=== PATIENT | female | born 2000 | race Caucasian/White ===

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

== ENCOUNTER 2022-08-24 14:04 | Emergency (ER) | payer MEDICAID, SELFPAY ==
[2022-08-24 14:06] VITALS: BP 116/77; PULSE 86; RESP 17; TEMP 36.6; O2SAT 98; BMI 25.0
--- NOTE | 2022-08-24 14:31 | W.ED.PSYCHS ---
HPI - Psych General: Chief Complaint: Psychiatric Symptoms Stated Complaint: mhe Time Seen by Provider: 08/24/22 14:08 Source: patient Mode of arrival: ambulatory Limitations: no limitations History of Present Illness: 22-year-old female who states that over the last few weeks she has had increased mood swings. States that time she just feels sad and is crying and that at times she has these anger outburst where she feels really angry. She denies any suicidality or homicidality. She states that she does not really feel depressed either she just cries sometimes for no reason. She states she feels like she is has these massive mood swings. Review of Systems Const: Denies: fever(s) or chills ENMT: Denies: throat pain or dental pain Card: Denies: chest pain Resp: Denies: dyspnea GI: Denies: abdominal pain, nausea or vomiting Musc: Denies: neck pain or back pain Skin/Breast: Denies: rash PFSH ED PFSH: Medical History No pertinent past medical history Family History Grandmother Breast cancer Maternal Uterine cancer maternal Mother Diabetes Hypertension Stroke Denies family history of Colon cancer Ovarian cancer Heart disease Thyroid disease Social History (Updated 08/24/22 @ 14:44 by Lexy Carson MD) Substance/Drug Use: never Physical Exam Const: COMMON NORMALS: no acute distress and patient oriented x3 HENMT: COMMON NORMALS: normocephalic and atraumatic HEAD & SCALP: normocephalic and atraumatic Neck/C-Spine: COMMON NORMALS: full ROM and supple Chest: COMMONS NORMALS: normal inspection of the chest and normal palpation of entire chest wall Resp: COMMON NORMALS: normal respiratory effort, No retractions, No use of accessory muscles and clear to auscultation bilaterally AUSCULTATION: clear to auscultation bilaterally Cardio: COMMON NORMALS: regular rate, regular rhythm and No murmurs present (Cardio) RATE: regular rate RHYTHM: regular rhythm GI: COMMON NORMALS: Normal to inspection, nondistended, normoactive bowel sounds present, Soft to palpation, non-tender and no masses PALPATION: Yes Soft to palpation Extremity: COMMON NORMALS: normal to inspection and full ROM Neuro: COMMON NORMALS: patient oriented x3, moves all extremities and no focal motor deficits Psych: COMMON NORMALS: mental status grossly normal, Normal thought process present and cooperative THOUGHT PROCESS: Normal thought process present Skin: COMMON NORMALS: no rashes or lesions noted and no wounds GENERAL SKIN EXAM: no rashes or lesions noted Course Vital Signs: Vital signs: Vital Signs Temperature 98 F 08/24/22 14:06 Pulse Rate 86 08/24/22 14:06 Respiratory Rate 17 08/24/22 14:06 Blood Pressure 116/77 08/24/22 14:06 Pulse Oximetry 98 08/24/22 14:06 MDM - Psych Medical Decision Making Patient presents here with increased mood swings she is not suicidal or homicidal no real depression she states she just has some outburst of crying and then she also has these anger episodes she does not require inpatient psych I did speak to her about our crisis center we will discharge her over to the crisis center at this time. Discharge Plan Discharge Patient Disposition: Home Clinical Impression: Mood swings Condition: Stable Prescriptions: No Action No Known Home Medications Discharge Orders: Discharge ED (Routine); Ordered 08/24/22 Ordered By: Lexy Carson Referrals: Hank Donaldson MD [Primary Care Provider] - Discharge Diet: Advance as tolerated Discharge Activity: Resume usual activity Patient Instructions: Mood Disorders (ED) Coding Level of Care Code ED Container Finisher for Catrachito Lind
--- NOTE | 2022-08-24 14:40 | PC.NURSE ---
DR. MCBRIDE GAVE VERBAL ORDER TO DC PT TO CRISIS CENTER. ORDER REPEATED BACK AND VERIFIED.
== END 2022-08-24 14:43 | disposition home or self-care (01) ==
PROVIDERS: Emergency Provider Emergency Medicine; PCP Family Medicine
DX: F39 Unspecified mood [affective] disorder (principal)
CPT/HCPCS: 99283

== ENCOUNTER → 2022-08-28 08:46 | Outpatient (BNVA) | payer MEDICAID, SELFPAY | PROVIDERS: PCP Family Medicine; Visit Provider Obstetrics & Gynecology | DX: N83.209 Unspecified ovarian cyst, unspecified side (principal) | CPT/HCPCS: 76830 ==

== ENCOUNTER → 2022-11-18 17:29 | Outpatient (BNVA) | payer MEDICAID, SELFPAY | PROVIDERS: PCP Family Medicine; Visit Provider Family Medicine | DX: R39.9 Unspecified symptoms and signs involving the genitourinary system (principal); R30.0 Dysuria | CPT/HCPCS: 81000 ==

== ENCOUNTER → 2022-12-11 07:56 | Outpatient (BNVA) | payer MEDICAID, SELFPAY | PROVIDERS: PCP Family Medicine; Visit Provider Nurse Practitioner Women's Health | DX: Z34.90 Encounter for supervision of normal pregnancy, unspecified, unspecified trimester (principal) | CPT/HCPCS: 81000 ==

== ENCOUNTER → 2022-12-17 14:34 | Outpatient (BNVA) | payer MEDICAID, SELFPAY | PROVIDERS: PCP Family Medicine; Visit Provider Nurse Practitioner Women's Health | DX: Z36.87 Encounter for antenatal screening for uncertain dates (principal) | CPT/HCPCS: 76817 ==

== ENCOUNTER → 2023-01-08 13:16 | Outpatient (BNVA) | payer MEDICAID, SELFPAY | PROVIDERS: PCP Family Medicine; Visit Provider Obstetrics & Gynecology | DX: Z34.90 Encounter for supervision of normal pregnancy, unspecified, unspecified trimester (principal) | CPT/HCPCS: 81000 ==

== ENCOUNTER → 2023-02-05 15:00 | Outpatient (BNVA) | payer MEDICAID, SELFPAY | PROVIDERS: PCP Family Medicine; Visit Provider Obstetrics & Gynecology | DX: Z34.90 Encounter for supervision of normal pregnancy, unspecified, unspecified trimester (principal); Z12.4 Encounter for screening for malignant neoplasm of cervix | CPT/HCPCS: 80307; 81000; 87086; 87491; 87591; 87624 ==

== ENCOUNTER → 2023-02-11 08:05 | Outpatient (BNVA) | payer MEDICAID, SELFPAY | PROVIDERS: PCP Family Medicine; Visit Provider Obstetrics & Gynecology | DX: Z34.90 Encounter for supervision of normal pregnancy, unspecified, unspecified trimester (principal) | CPT/HCPCS: 84443; 85027; 86592; 86762; 86803; 86850; 86900; 87340; 87806 ==

== ENCOUNTER → 2023-03-03 14:05 | Outpatient (BNVA) | payer MEDICAID, SELFPAY | PROVIDERS: PCP Family Medicine; Visit Provider Nurse Practitioner Women's Health | DX: Z34.90 Encounter for supervision of normal pregnancy, unspecified, unspecified trimester (principal) | CPT/HCPCS: 81000; 82105; 87806 ==

== ENCOUNTER → 2023-03-26 09:23 | Outpatient (BNVA) | payer MEDICAID, SELFPAY | PROVIDERS: PCP Family Medicine; Visit Provider Obstetrics & Gynecology | DX: Z34.92 Encounter for supervision of normal pregnancy, unspecified, second trimester (principal) | CPT/HCPCS: 76805 ==

== ENCOUNTER 2023-07-30 08:23 | Inpatient (IN) | payer MEDICAID, SELFPAY ==
[2023-07-30] VITALS (84 sets, daily range): BP systolic 80–196; BP diastolic 50–127; PULSE 74–123; TEMP 36.6–37.6; O2SAT 100; BMI 28.1
[2023-07-30 08:35] LABS: Basophils % 0.2 %; Eosinophils # 0.1 10^3/uL (0.0-0.8); Eosinophils % 0.5 %; Hematocrit 35.4 % (36-47); Lymphocytes % 18.1 %; Mean Corpuscular HGB Conc 32.8 g/dL (30-55); Mean Corpuscular Hemoglobin 28.9 pg (27-33); Mean Corpuscular Volume 88.3 fl (85-98); Monocytes % 5.9 %; Neutrophils # 12.34 10^3/uL (1.8-7.7); Neutrophils % 73.7 %; Nucleated Red Blood Cells % 0 %; Platelet Count 246 10^3/cmm (157-399); Red Blood Count 4.01 10^6/uL (3.85-5.65); Red Cell Distribution Width 13.8 % (12.1-15.1); White Blood Count 16.75 10^3/uL (3.29-11.43)
[2023-07-30] MEDS: lactated ringers 1,000 ML 999 ML IV ×2 (09:30→10:54)
[2023-07-30] MEDS: dextrose 5%-lactated ringers 1,000 ML 125 ML IV ×2 (10:14→21:47)
[2023-07-30] MEDS: ROPivacaine syringe 100 MG/50 ML SYRINGE 10 MG EPIDURAL ×3 (10:14→19:29)
--- NOTE | 2023-07-30 10:40 | P.ANESASSM_ITS ---
Pre-Anesthetic Assessment Height/Weight: Height 1.65 m Weight 76.657 kg Temp Pulse BP Pulse Ox O2 Del Method 98.8 F 100 105/61 100 Room Air 07/30/23 09:15 07/30/23 10:36 07/30/23 10:36 07/30/23 10:30 07/30/23 08:23 epidural Familial anesthetic complications: none Was Beta Sheri taken within 24 hours: N/A Was Clonidine taken within 24 hours: N/A Last intake: > Social No alcohol and No tobacco Exam alert, oriented x 3, clear to auscultation bilaterally and regular rate & rhythm Anesthetic Plan ASA status: 2 Anesthesia: Regional (specify below) Risk of > 500 ml blood loss (7ml/kg in children): Yes, adequate IV access and fluids planned Medications/Allergies Home Medications Medication Instructions Recorded Confirmed Last Taken Type metoclopramide HCl 5 mg tablet 5 mg PO DAILY #30 tabs 12/11/22 03/27/23 Unknown Rx (Reglan) vits no.126-ferrous fum tab PO 12/11/22 03/27/23 Unknown History 28 mg iron-folic acid 800 mcg tablet (Classic ) sertraline 50 mg tablet (Zoloft) 50 mg PO DAILY #30 tabs 01/06/23 03/27/23 Unknown Rx ondansetron HCl 4 mg tablet 4 mg PO Q8H PRN nausea and 01/08/23 03/27/23 Unknown Rx vomiting #30 tabs acyclovir 5 % topical ointment 1 applic topical 6XD 7 days #5 03/27/23 03/27/23 Unknown Rx grams Allergies Allergy/AdvReac Type Severity Reaction Status Date / Time No Known Allergies Allergy Verified 03/03/23 10:15 Current Medications Generic Name Dose Route Start Last Admin Trade Name Freq PRN Reason Stop Dose Admin Dextrose/Lactated Ringer's 1,000 mls @ 125 mls/hr 07/30/23 08:30 07/30/23 10:14 Dextrose 5%-Lactated Ringers IV 125 mls/hr .Q8H JUAN Administration Lactated Ringer's 1,000 mls @ 999 mls/hr 07/30/23 08:22 07/30/23 09:30 Lactated Ringers IV 999 mls/hr .Q1H1M PRN Administration See label comments Ropivacaine 100 mg in 50 mls @ 10 mls/hr 07/30/23 08:30 07/30/23 10:14 Naropin Syringe EPIDURAL 10 mls/hr .Q5H JUAN Administration PFSH Anesthesia Medical History No pertinent past medical history Family History Grandmother Breast cancer Maternal Uterine cancer maternal Mother Diabetes Hypertension Stroke Denies family history of Colon cancer Ovarian cancer Heart disease Thyroid disease Social History Substance/Drug Use: never Female Reproductive History : 1 Data Anesthesia 07/30/23 08:10 Short CBC 07/30/23 Range/Units 08:10 WBC 16.75 H (3.29-11.43) 10^3/uL Hgb 11.60 (11.27-16.99) g/dL Hct 35.4 L (36-47) % MCV 88.3 (85-98) fl Plt Count 246 (157-399) 10^3/cmm Neut % (Auto) 73.7 % Neut # (Auto) 12.34 H (1.8-7.7) 10^3/uL Blood Bank 07/30/23 08:10 Blood Type A Positive Rho(D) Type Rh positive Antibody Screen Negative Cardiac Studies: 2 No Data to Display
--- NOTE | 2023-07-30 10:41 | ANES.PROC ---
Anesthesia Procedures Procedure/Date: 07/30/23 Epidural: Time Out Performed: Yes Consents Signed: Procedure Consent Consent: requested by attending/covering physician, from patient, from other, risks and benefits reviewed and patient agrees to proceed Lumbar Level: L3-L4 Epidural position: sitting Epidural procedure: sterile prep of area, 1% lidocaine to numb the area, 18 g needle, negative for paresthesia passed, neg for paresthesia, test dose given, 1.5% xylocaine 1:200k epi (5), 0.2% Ropivacaine bolus ml (5), placed PCEA, no systemic response, sterile dressing applied, L.U.D. no apparent complications and 0.2% Ropiavacaine @ mls/hr (10)
[2023-07-30] MEDS: ondansetron 2 mg/ML SDV 2 mL 4 MG IVP ×2 (10:54→21:47)
[2023-07-30] MEDS: oxytocin 30 UNIT/500 ML BAG IV (17:34)
--- NOTE | 2023-07-30 21:58 | PM.OPHPUD ---
Labor & Delivery H&P Update Date of Procedure: July 30, 2023 Date H&P Performed: 07/29/23 Changes to previous documentation: The patient has had spontaneous rupture membranes Admission Diagnosis: 23-year-old 1 at 38 weeks estimated gestational age Planned procedure: Vaginal delivery Other information: The patient is a 38-week female infant who presented to the hospital's morning with spontaneous rupture membranes at about 7 AM this morning. Otherwise, the patient has a relatively unremarkable . She failed her 1 hour glucose screen but passed her 3-hour. Her blood type is a positive. Her antibody screen was negative. She is rubella immune. She is GBS negative. The remainder of her infectious disease profile is within normal limits. Related Problem List Diagnoses (1) 38 weeks gestation of : (2) Rupture of membranes with clear amniotic fluid: A&P Assessment and plan (1) 38 weeks gestation of : I anticipate routine labor and delivery. We will augment her labor as needed. Status: Acute (2) Rupture of membranes with clear amniotic fluid: Status: Acute
--- NOTE | 2023-07-30 23:04 | P.PCNOB_ITS ---
Delivery Note: Date of delivery: July 30, 2023 Pre-delivery diagnoses: 23-year-old 1 at 38 weeks estima aria gestational age with spontaneous rupture membranes Post-delivery diagnoses: Status post spontaneous vaginal delivery Procedure: Spontaneous vaginal delivery Delivering Physician: Orestes Quiroz Estimated blood loss (mL): 75 Pre-Delivery Course: The patient presented to the hospital with spontaneous rupture membranes. She initially made some progress with her cervix. An epidural was placed. She stayed at 6 cm for 4 hours. Pitocin was added. She then gradually progressed to complete. She did have a temp of 100.1 at 1 point but that resolved for the last couple of hours prior to deliver the baby. Delivery: DELIVERY: The patient progressed to complete without difficulty. She delivered a male with a weight of 6 pounds 15 ounces with Apgars of 8, 8. The baby was delivered from the THERESA position and placed on the mother's abdomen. Mouth and nose were suctioned. The cord was then clamped and cut approximately 1 minute after delivery. There was a nuchal cord x 1. The baby was delivered through the cord. There was no meconium. The placenta and 3 vessel cord were delivered intact shortly thereafter. The perineum and vaginal vault were carefully examined. Only superficial vaginal lacerations were noted. No bleeding was noted.. Both the mother and the baby were in stable condition. Post-Delivery Status: Good History History History 1 Term Miscarriages/Ectopic Living Children A&P Assessment and plan (1) 38 weeks gestation of : (2) Spontaneous vaginal delivery: I anticipate routine care. Coding Level of Care Code Acute Code for Chg Fwd Diagnoses 38 weeks gestation of Z3A.38 Spontaneous vaginal delivery O80
[2023-07-31] VITALS (12 sets, daily range): BP systolic 99–127; BP diastolic 61–79; PULSE 67–93; RESP 16; TEMP 36.6–37; O2SAT 97–98
[2023-07-31] MEDS: benzocaine-menthol 78 gm Canister 1 SPRAY TOPICAL (00:59)
[2023-07-31] MEDS: lanolin oint 7 gm 1 APPLIC TOPICAL (01:00)
[2023-07-31] MEDS: docusate sodium 100 mg Capsule PO ×2 (10:23→21:27)
[2023-07-31] MEDS: PRENATAL VIT NO.130/IRON/FOLIC 1 EACH TABLET PO (10:23)
[2023-07-31] MEDS: ibuprofen 800 mg tablet PO ×3 (10:23→21:27)
[2023-07-31 11:08] LABS: Hematocrit 29.4 % (36-47); Mean Corpuscular Hemoglobin 29.2 pg (27-33); Mean Corpuscular Volume 88.6 fl (85-98); Mean Platelet Volume 11.5 fL (7.4-10.4); Platelet Count 205 10^3/cmm (157-399); Red Blood Count 3.32 10^6/uL (3.85-5.65); Red Cell Distribution Width 14.1 % (12.1-15.1); White Blood Count 21.44 10^3/uL (3.29-11.43)
--- NOTE | 2023-07-31 13:43 | ANE.PACU2 ---
Inpatient post-anesthesia follow up: Airway intact: Yes Vital signs: Temperature 97.9 F Pulse Rate 67 Respiratory Rate 16 Blood Pressure 99/61 Pulse Oximetry 98 Oxygen Delivery Me thod Room Air Oxygen Flow Rate Fraction of Inspir ed Oxygen Hydration adequate: Yes Nausea and vomiting: No Pain level: 1 Mental status: Baseline Epidural Start/End: Epidural Start Date: 07/30/23 Epidural Start Time: 10:13 Epidural End Date: 07/31/23 Epidural End Time: 00:50
--- NOTE | 2023-07-31 18:04 | PM.OBGYPN ---
WALLET ASSEMBLER Subjective Subjective: Interval history: The patient is doing well. She initially was having some difficulty breast-feeding, but she has been doing very well since seeing the information security consultant. Her bleeding has been within normal limits. Labor: Station: +2 Amniotic Membrane Status: Ruptured Monitor Mode: Palpation Contraction Pattern: Regular Status: Category I Vitals/I&O/Wt Last Vital Signs Temp 98.0 F 07/31/23 16:16 Pulse 67 07/31/23 16:16 Resp 16 07/31/23 16:16 BP 107/67 07/31/23 16:16 Pulse Ox 98 07/31/23 16:16 O2 Del Method Room Air 07/31/23 16:16 07/31/23 07/31/23 07/31/23 06:59 14:59 22:59 Output Total 1200 / 1600 Balance -1200 / -533.050 Weight last 48 hrs Weight 169 lb Physical Exam Narrative: The patient is alert. She appears comfortable. Her heart has a regular rate and rhythm with no murmurs appreciated. Lungs are clear to auscultation bilaterally. Her fundus is firm and below the umbilicus. Urinary Catheter Management: Miranda: Cath Placed During This Visit: yes Reason for Continuing Indwelling Catheter: Acute Urinary Retention or Obstruction Urinary Catheter Date of Insertion: 07/30/23 Urinary Catheter Time of Insertion: 11:56 Data 07/31/23 10:44 A&P Assessment and plan (1) Spontaneous vaginal delivery: I anticipate routine care. I anticipate she will be discharged home tomorrow morning. (2) 38 weeks gestation of : Attestations Medical Necessity Statement*: Routine care. Coding Level of Care Code Acute Code for Chg Fwd Diagnoses Spontaneous vaginal delivery O80 38 weeks gestation of Z3A.38
[2023-08-01 05:45] VITALS: BP 119/70; PULSE 78; RESP 18; TEMP 36.8
--- NOTE | 2023-08-01 06:56 | PM.OBGYDC ---
Discharge Providers HVAC TECH Date of Admission: 07/30/23 08:23 Date of Discharge: 08/01/23 Attending Provider at Admission: Orestes Quiroz MD Attending Provider at Discharge: Orestes Quiroz MD Primary Care Provider: Orestes Quiroz MD Diagnoses at Discharge Discharge Diagnosis (1) Spontaneous vaginal delivery: Status: Acute (2) 38 weeks gestation of : Status: Acute Reason for Visit Reason for Visit: Possible ROM, contractions Hospital Course Hospital Course The patient arrived to the hospital with spontaneous rupture membranes. She then gradually progressed to complete and had an unremarkable vaginal delivery. Her bleeding has been within normal limits. Her pain is been well-controlled. She has had some moments of difficulty with breast-feeding, but she is currently doing very well. Information Peripartum Data: Delivery Method: Vaginal Physical Exam Narrative: The patient is alert. She appears comfortable. Her heart has a regular rate and rhythm with no murmurs appreciated. Lungs are clear to auscultation bilaterally. Her fundus is firm and below the umbilicus. Urinary Catheter Management: Miranda: Cath Placed During This Visit: yes Reason for Continuing Indwelling Catheter: Acute Urinary Retention or Obstruction Urinary Catheter Date of Insertion: 07/30/23 Urinary Catheter Time of Insertion: 11:56 History History History 1 Term Miscarriages/Ectopic Living Children Discharge Data Studies Completed and Pending Laboratory Results WBC 21.44 10^3/uL (3.29-11.43) H 07/31/23 10:44 RBC 3.32 10^6/uL (3.85-5.65) L 07/31/23 10:44 Hgb 9.70 g/dL (11.27-16.99) L 07/31/23 10:44 Hct 29.4 % (36-47) L 07/31/23 10:44 MCV 88.6 fl (85-98) 07/31/23 10:44 MCH 29.2 pg (27-33) 07/31/23 10:44 MCHC 33.0 g/dL (30-55) 07/31/23 10:44 RDW 14.1 % (12.1-15.1) 07/31/23 10:44 Plt Count 205 10^3/cmm (157-399) 07/31/23 10:44 MPV 11.5 fL (7.4-10.4) H 07/31/23 10:44 Neut % (Auto) 73.7 % 07/30/23 08:10 Lymph % (Auto) 18.1 % 07/30/23 08:10 Kings % (Auto) 5.9 % 07/30/23 08:10 Eos % (Auto) 0.5 % 07/30/23 08:10 Baso % (Auto) 0.2 % 07/30/23 08:10 Neut # (Auto) 12.34 10^3/uL (1.8-7.7) H 07/30/23 08:10 Lymph # (Auto) 3.0 10^3/uL (0.8-4.8) 07/30/23 08:10 Kings # (Auto) 1.0 10^3/uL (0.2-0.9) H 07/30/23 08:10 Eos # (Auto) 0.1 10^3/uL (0.0-0.8) 07/30/23 08:10 Baso # (Auto) 0.0 10^3/uL (0.0-0.1) 07/30/23 08:10 Nucleated RBC % (auto) 0 % 07/30/23 08:10 Nucleated RBCs # 0.0 /100WBC 07/30/23 08:10 Blood Type A Positive 07/30/23 08:10 Rho(D) Type Rh positive 07/30/23 08:10 Antibody Screen Negative 07/30/23 08:10 Vitals Last Vital Signs Temp 98.0 F 07/31/23 21:25 Pulse 76 07/31/23 21:25 Resp 16 07/31/23 21:25 BP 107/71 07/31/23 21:25 Pulse Ox 97 07/31/23 21:25 O2 Del Method Room Air 07/31/23 21:25 Results Labs OB ([facility]): Blood Type A Positive 07/30/23 Antibody Screen Negative 07/30/23 Hct 29.4 % (36-47) L 07/31/23 Hgb 9.70 g/dL (11.27-16.99) L 07/31/23 Rho(D) Type Rh positive 07/30/23 Plt Count 205 10^3/cmm (157-399) 07/31/23 Hep Bs Antigen Non-reactive (Nonreactive) 02/11/23 Hep Bs Antibody 3.5 (11.5-1000) L 07/10/22 Hepatitis C Antibody Non-reactive (Nonreactive) 02/11/23 Rubella IgG Antibody 161.2 IU/mL (0.0-10.0) H 02/11/23 RPR Nonreactive (Nonreactive) 02/11/23 HIV 1&2 Ab & HIV 1 Ag Non-reactive (Non-Reactiv) 03/03/23 TSH 1.49 uIU/mL (0.27-4.20) 02/11/23 C.trachomatis RNA (TMA) Not detected (NOT DETECTED) 02/05/23 N.gonorrhoeae RNA (TMA) Not detected (NOT DETECTED) 02/05/23 T. vaginalis Amp RNA Not detected (NOT DETECTED) 02/05/23 Chlamydia/GC Comment See note 02/05/23 Cystic Fibrosis Screen Negative 02/11/23 VZV IgG Antibody 149.00 index L 07/10/22 Urine Opiates Screen Negative ng/mL (Negative) 02/05/23 Ur Barbiturates Screen Negative ng/mL (Negative) 02/05/23 Ur Phencyclidine Scrn Negative ng/mL (Negative) 02/05/23 Ur Amphetamines Screen Negative ng/mL (Negative) 02/05/23 U Benzodiazepines Scrn Negative ng/mL (Negative) 02/05/23 Urine Cocaine Screen Negative ng/mL (Negative) 02/05/23 U Marijuana (THC) Screen Negative ng/mL (Negative) 02/05/23 Micro Urine Specimen 02/05/23 Pap Smear Interpret See note 02/05/23 Discharge Plan Discharge Patient Disposition: Home Condition: Stable Prescriptions: New ibuprofen 800 mg Tablet 800 mg PO TID Qty: 45 0RF Vitamin 27 mg iron- 800 mcg Tablet 1 tab PO DAILY Qty: 90 3RF Discontinued famotidine 10 mg Tablet 10 mg PO DAILY Discharge Orders: Discharge Order (Routine); Ordered 08/01/23 Ordered By: Orestes Quiroz Referrals: Orestes Quiroz MD [Primary Care Provider] - 6 Weeks Discharge Diet: Usual diet Discharge Activity: Limit activity as instructed Patient Instructions: Depression (DC), Bleeding (DC), Preeclampsia and Eclampsia After Delivery (GEN), Hemorrhage (DC), OB Discharge Report, OB Anesthesia Instructions, OB Food/Drug Interaction Guide, OB Care at Home, Opioid Safety, OB Home Care, OB Vaginal Deliveries Discharge Attestations HVAC TECH Time Spent in Discharge Care*: less than 30 min Coding Level of Care Code Acute Code for Chg Fwd Diagnoses Spontaneous vaginal delivery O80 38 weeks gestation of Z3A.38
[2023-08-01] MEDS: ibuprofen 800 mg tablet PO (08:26)
[2023-08-01] MEDS: PRENATAL VIT NO.130/IRON/FOLIC 1 EACH TABLET PO (08:26)
[2023-08-01] MEDS: docusate sodium 100 mg Capsule PO (08:26)
[2023-08-01 09:37] VITALS: BP 110/71; PULSE 85; TEMP 36.7; O2SAT 97
[2023-08-01 10:45] VITALS: BP 112/78; PULSE 78; TEMP 36.7
== END 2023-08-01 11:24 | disposition home or self-care (01) | DRG 807 ==
PROVIDERS: Admitting Provider Family Medicine; PCP Family Medicine; Visit Provider Family Medicine
DX: O69.81X0 Labor and delivery complicated by cord around neck, without compression, not applicable or unspecified (principal); Z37.0 Single live birth; Z3A.38 38 weeks gestation of pregnancy
CPT/HCPCS: 36415; 51702; 59025; 59409; 83986; 85025; 85027; 86850; 86900; 96374; 96376; 98960; 99211; J2405; J2590; J2795; J7120; J7121

== ENCOUNTER → 2025-02-07 08:52 | Outpatient (BNVA) | payer MEDICAID, SELFPAY | PROVIDERS: PCP Family Medicine; Visit Provider Nurse Practitioner | DX: J02.9 Acute pharyngitis, unspecified (principal) | CPT/HCPCS: 87880 ==